=== PATIENT | male | born 1980 | race African-American/Black ===

== ENCOUNTER 2022-03-29 21:55 | Emergency (ER) | payer OTHER ==
[2022-03-29] MEDS ORDERED: Ibuprofen 200 MG TAB ONE (22:41)
== END 2022-03-29 23:25 | disposition home or self-care (01) ==
LOC: CSHERS 21:55
DX: S13.4XXA Sprain of ligaments of cervical spine, initial encounter (principal); E11.9 Type 2 diabetes mellitus without complications; E78.5 Hyperlipidemia, unspecified; V89.2XXA Person injured in unspecified motor-vehicle accident, traffic, initial encounter
CPT/HCPCS: 72050

== ENCOUNTER 2022-03-31 15:43 | Emergency (ER) | payer SELFPAY, OTHER | END 2022-03-31 16:34 | disposition home or self-care (01) | LOC: CSHERS 15:43 | DX: S39.012A Strain of muscle, fascia and tendon of lower back, initial encounter (principal); S13.4XXA Sprain of ligaments of cervical spine, initial encounter; M62.830 Muscle spasm of back; E78.5 Hyperlipidemia, unspecified; V49.40XA Driver injured in collision with unspecified motor vehicles in traffic accident, initial encounter | CPT/HCPCS: 99283 ==